=== PATIENT | male | born 2000 | race Caucasian/White ===

== ENCOUNTER 2020-06-10 15:59 | Outpatient (REF) | payer OTHER, SELFPAY | END 2020-06-10 16:00 | disposition home or self-care (01) | LOC: HO.LAB 15:59 | PROVIDERS: Visit Provider Internal Medicine | DX: Z20.828 Contact with and (suspected) exposure to other viral communicable diseases (principal) | CPT/HCPCS: C9803; U0003 ==

== ENCOUNTER 2020-06-16 09:17 | Outpatient (REF) | payer OTHER, SELFPAY | END 2020-06-16 09:18 | disposition home or self-care (01) | LOC: HO.LAB 09:17 | PROVIDERS: Visit Provider Internal Medicine | DX: Z20.828 Contact with and (suspected) exposure to other viral communicable diseases (principal) | CPT/HCPCS: C9803; U0003 ==

== ENCOUNTER 2020-07-16 11:22 | Outpatient (REF) | payer OTHER, SELFPAY | END 2020-07-16 11:23 | disposition home or self-care (01) | LOC: HO.LAB 11:22 | PROVIDERS: PCP Family Medicine; Visit Provider Internal Medicine | DX: Z20.828 Contact with and (suspected) exposure to other viral communicable diseases (principal) | CPT/HCPCS: C9803; U0003 ==

== ENCOUNTER 2021-03-31 10:02 | Outpatient (REF) | payer MEDICAID, SELFPAY ==
--- NOTE | ~2021-03-31 | XR_ITS ---
EXAMINATION: XR THORACIC SPINE XR LUMBAR SPINE CLINICAL INFORMATION: Back pain. COMPARISON: None TECHNIQUE: AP, lateral, and swimmer's views of the thoracic spine. AP, lateral, and coned-down views of the lumbar spine. FINDINGS: Thoracic spine: Normal vertebral body alignment. The thoracic kyphosis is maintained. No acute fracture or subluxation. No loss of vertebral body or intervertebral disc height. No lytic or blastic osseous lesion. The visualized lungs are clear. Lumbar spine: Normal vertebral body alignment. The lumbar lordosis is maintained. No acute fracture or subluxation. No loss of vertebral body or intervertebral disc height. No lytic or blastic osseous lesion. No abnormal soft tissue calcification. XR/XR thoracic spine 3V IMPRESSION: Unremarkable examination.
--- NOTE | ~2021-03-31 | XR_ITS ---
EXAMINATION: XR THORACIC SPINE XR LUMBAR SPINE CLINICAL INFORMATION: Back pain. COMPARISON: None TECHNIQUE: AP, lateral, and swimmer's views of the thoracic spine. AP, lateral, and coned-down views of the lumbar spine. FINDINGS: Thoracic spine: Normal vertebral body alignment. The thoracic kyphosis is maintained. No acute fracture or subluxation. No loss of vertebral body or intervertebral disc height. No lytic or blastic osseous lesion. The visualized lungs are clear. Lumbar spine: Normal vertebral body alignment. The lumbar lordosis is maintained. No acute fracture or subluxation. No loss of vertebral body or intervertebral disc height. No lytic or blastic osseous lesion. No abnormal soft tissue calcification. XR/XR lumbar spine 2-3V IMPRESSION: Unremarkable examination.
== END 2021-03-31 10:03 | disposition home or self-care (01) ==
LOC: HO.XRAY 10:02
PROVIDERS: PCP Family Medicine; Visit Provider Family Medicine
DX: M54.5 Low back pain (principal)
CPT/HCPCS: 72072; 72100

== ENCOUNTER 2024-09-02 14:05 | Outpatient (REF) | payer MEDICAID, SELFPAY ==
[2024-09-02 16:45] LABS: Estimated Average Glucose 94 mg/dL; Hemoglobin A1C 123.2729 umol/L; Hemoglobin A1c % 4.9 % (<6.0); Total Hemoglobin (HGBA1C) 4173.7902 umol/L
[2024-09-02 16:55] LABS: Alanine Aminotransferase 36 U/L (0-40); Albumin Level 4.5 g/dL (3.5-5.0); Alkaline Phosphatase 52 U/L (39-117); Anion Gap 11 (12-20); Aspartate Amino Transferase 24 U/L (5-37); Blood Urea Nitrogen 13 mg/dL (9-16); Calcium 9.5 mg/dL (8.4-10.2); Carbon Dioxide 25 mmol/L (22-29); Chloride 108 mmol/L (96-108); Estimated Glomerular Filt Rate > 60; Glucose Random 100 mg/dL (60-115); Sodium 140 mmol/L (135-145); Total Protein 7.5 g/dL (6.5-8.0)
[2024-09-02 17:05] LABS: TSH reflex Free T4 0.97 uIU/mL (0.32-4.0)
[2024-09-02 18:08] LABS: CT PCR NOT DETECTED (Not Detect.); NG PCR NOT DETECTED (Not Detect.)
--- OUTSIDE RECORDS SUMMARY | 2024-09-02 18:37 | XMS_ITS | Encounter Summary ---
Author Organization [employer] Address [address] 7[address] [place] [address] Care Team Providers Care Supervisor [employer] Name Role Phone Elaine Zavala MD Primary Care Provider [phone] Encounter Details Date Type Department Care Team (Latest Contact Info) Description 09/02/2024 Travel Social History Tobacco Use Types Packs/Day Years Used Date Smoking Tobacco: Never Smokeless Tobacco: Never Depression Answer Date Recorded Patient Health Questionnaire-9 Score 0 09/02/2024 Patient Health Questionnaire-9 Score 0 09/02/2024 Last PHQ-9: Questionnaire Data Not on file 0 09/02/2024 Housing Stability Answer Date Recorded What is your housing situation today? I have riccardovelma bobo 11/02/[address] you li ve. Do you have problems with any of the following? None of the above 11/02/2023 Food Insecurity Answer Date Recorded Within the past 12 months, y ou worried that your food would run out before you got money to buy more: Never True 11/02/2023 Within the past 12 months,th e food you bought just didn't last and you didn't have enough money to get more: Never True Transportation Answer Date Recorded In the past 12 months, has l ack of transportation kept you from medical appts, meetings, work or from getting things needed for daily living? No 11/02/2023 Utilities Answer Date Recorded In the past 12 months, has t he electric, gas, oil or water company threatened to shut off services in your home? Yes 09/02/2024 Depression Answer Date Recorded Patient Health Questionnaire-2 Score 0 09/02/2024 Internet Access Answer Date Recorded Internet Access Q1 Yes 08/22/2024 Internet Access Q2 Not on file 08/22/2024 Sex and Gender Information Value Date Recorded Sex Assigned at Male 06/06/2022 10:18 AM EDT Legal Sex Male 10:18 AM EDT Gender Identity Male 06/06/2022 10:18 AM EDT Sexual Orientation Straight 06/06/2022 10 :18 AM EDT documented as of this encounter Plan of Treatment Not on file documented as of this encounter Visit Diagnoses Not on filedocumented in this encounter Additional Health Concerns Assessment Noted Time PHQ-9 Depression Total Score: 0 09/02/19 25 1:54 PM EST documented as of this encounter Care Teams Supervisor [employer]ar [employer] Relationship Specialty Start Date End Date Elaine Zavala MD [address] [place] [address] PCP - General Family Medicine 08/07/18 documented as of this encounter
--- OUTSIDE RECORDS SUMMARY | 2024-09-02 18:37 | XMS_ITS | Clinical Summary ---
Author Organization [employer] Address [address] [facility] 7t [place] [address] Care Team Providers Care Felt Hat Mellowing Machine Operator Name Role Phone Elaine Zavala MD Primary Care Provider [phone] Allergies No known active allergies Medications cetirizine (ZyrTEC) 10 MG tablet Take 1 tablet (10 mg) by mouth in the morning. 90 tablet 3 3 Active mometasone (Elocon) 0.1 % ointment Apply topically to the affected area shortly after shower / bath. Dry well before applying. 45 g 2 3 Active hydrocortisone 2.5 % cream Apply topically once or twice daily. Shortly after shower / bath 453 g 1 5 Active triamcinolone (Kenalog) 0.1 % cream Apply to affected area once or twice daily. Apply shortly after shower. 80 g 1 5 Active Active Problems Problem Noted Date Diagnosed Date Marijuana use 11/20/2022 Assessment & Plan (09/02/2024 2:09 PM EST): - discussed about responsible, judicious, and safe use. - pt agreed to carry Narcan; will prescribe Assessment & Plan (11/20/2022 3:44 PM EDT): - discussed about responsible, judicious, and safe use. - discussed about increasing fentanyl overdose and Xylazine - pt agreed to carry Narcan; will prescribe Poor vision 11/20/2022 Allergic rhinitis 07/11/2013 Assessment & Plan (09/02/2024 2:08 PM EST): - restart cetirizine Assessment & Plan (11/20/2022 3:41 PM EDT): - restart cetirizine Atopic dermatitis 05/04/2012 Assessment & Plan (09/02/2024 2:08 PM EST): - avoid scratching - use hypoallergenic and unscented skin care / laundry / cleaning product - liberal moisturization with emollient (such as Vaseline) - judicious use of topical steroid Assessment & Plan (11/20/2022 3:49 PM EDT): - avoid scratching - use hypoallergenic and unscented skin care / laundry / cleaning product - liberal moisturization with emollient (such as Vaseline) - judicious use of topical steroid History of ADHD 05/04/2012 Assessment & Plan (09/02/2024 2:08 PM EST): - he did not need any medication - he was able to graduate [facility] Assessment & Plan (11/20/2022 3:40 PM EDT): - he did not need any medication - he was able to graduate [facility] Resolved Problems Problem Noted Date Diagnosed Date Resolved Date Childhood obesity 10/29/2015 11/12/2023 Encounters Date Type Department Care Team Description 09/02/2024 1:15 PM EST Office Visit [facility] [address] [place] [phone] Elaine Zavala MD Routine general medical examination at a health care facility (Primary Dx); Intrinsic atopic dermatitis; History of ADHD; Allergic rhinitis, unspecified seasonality, unspecified trigger; Routine screening for STI (sexually transmitted infection); Immunity status testing; Screening for lipid disorders; Encounter for screening for respiratory tuberculosis; Obesity (BMI 30.0-34.9); Skin lesion; Marijuana use; Poor vision 09/02/2024 Travel 08/22/2024 Patient Outreach [facility] [address] [place] [phone] Elaine Zavala MD Pre-visit Planning (SDOH Screening negative and Tobacco screening negative) from Last 3 Months Immunizations Name Administration Dates Next Due DTaP 01/28/2019, 5,05/15/2002,07/04,04/26/2001,02/14/2001 HPV 9-Valent 07/25/2016,07/14/2015 HPV, Quadrivalent 07/14/2014 Hep A, ped/adol, 2 dose 11/25/2010,11/16/2009 Hep B, Adolescent or Pediatric 07/04/2001,2000,2000 Hib (HbOC) 12/27/2002,05/04/2001,02/14/2001 IPV 02/09/2005, 2,03/03/2001,02/14 Influenza injectable quadriv alent IIV4 with preservative 07/25/2016,07/14/2015 Influenza injectable quadriv alent preservative free 08/19/2019,08/15/2018,07/26/2017 Influenza, IIV3, injectable 04/28/2011 Influenza, Split (incl. teagan fied surface antigen) 07/11/2013,05/04/2012 Influenza, injectable, quadr ivalent, preservative free, pediatric 07/14/2014 Influenza, live, intranasal 04/13/2010 MMR 02/09/2005,12/21/2001 Meningococcal MCV4P ACYW-135 07/26/2017,05/04/20 12 Pneumococcal Conjugate PCV 7 05/15/2002, 07/04/2001,04/29/2001,02/14 Tdap 05/04/2012 Varicella 08/03/2007,12/21/2001 Family History Medical History Relation Name Comments Diabetes type II Maternal Grandmother Relation Name Status Comments Maternal Grandmother Social History Tobacco Use Types Packs/Day Years Used Date Smoking Tobacco: Never Smokeless Tobacco: Never Tobacco Cessation:Counseling Given: Not Answered Depression Answer Date Recorded Patient Health Questionnaire-9 Score 0 09/02/2024 Patient Health Questionnaire-9 Score 0 09/02/2024 Last PHQ-9: Questionnaire Data Not on file 0 09/02/2024 Housing Stability Answer Date Recorded What is your housing situation today? I have riccardo bobo 11/02/[address] you [...] Orientation Straight 06/06/2022 10 :18 AM EDT Last Filed Vital Signs Vital Sign Reading Time Taken Comments Blood Pressure 124/80 09/02/2024 1:55 PM EST Pulse 60 09/02/2024 1:31 PM EST Temperature 36.7 ??C (98.1 ??F) 09/02/2024 1:31 PM ES T Respiratory Rate 16 09/02/2024 1:31 PM EST Oxygen Saturation 98% 11/08/2022 11:09 AM EDT Inhaled Oxygen Concentration - - Weight 103 kg (227 lb 3.2 oz) 09/02/2024 1:31 PM EST Height 175.9 cm (5' 9.24 ) 11/08/2022 11:09 AM E DT Body Mass Index 33.32 11/08/2022 11:09 AM EDT Plan of Treatment Health Maintenance Due Date Last Done Comments Chlamydia and Gonorrhea Screening 2000 09/02/2024 Family Planning (PISQ) 12/21/2015 COVID-19 Vaccine ( season) 2024 07/09/2021, 06/18/2021 Influenza Vaccine (#1) 2024 , 08/15/2018, 07/26/2017, Additional history exists SDOH Screening 08/22/2025 08/22/2024 Alcohol/Substance Use Screening 09/02/2025 09/02/2024 Depression Screening 09/02/2025 09/02/2024, 09/02/19 Tobacco Screening 09/02/2025 09/02/2024 DTaP/Tdap/Td Vaccines (8 - Td or Tdap) 01/28/2029 01/28/2019, 05/04/2012, 02/09/2005, Additional history exists Zoster Vaccines (1 of 2) 2050 RSV Patients and Patients Aged 60 years or older (1 - 1-dose 75+ series) 12/21/2075 Hepatitis B Vaccines Completed 07/04/2001, 02/14/2001, 2000 Pneumococcal Vaccine: Pediatrics (0 to 5 Years) and At-Risk Patients (6 to 64 Years) Aged Out 05/15/2002, 07/04/2001, 04/29/2001, Additional history exists No longer eligible based on patient's age to complete this topic HIB Vaccines Completed 12/27/2002, 04/08, 02/14/2001 IPV Vaccines Completed 02/09/2005, 04/2002, 03/03/2001, Additional history exists Hepatitis A Vaccines Completed 11/25/2010, 11/17/19 10 HPV Vaccines Completed 07/25/2016, 03/2015, 07/14/2014 Meningococcal Vaccine Completed 07/26/2017, 012 HIV Screening Completed 11/08/2022 Hepatitis C Screening Completed 11/08/2022 RSV under 20 months Aged Out No longe r eligible based on patient's age to complete this topic Rotavirus Vaccines Aged Out No longer eligible based on patient's age to complete this topic Procedures Procedure Name Priority Date/Time Associated Diagnosis Comments COMPREHENSIVE METABOLIC PANEL Routine 09/02/2024 2:20 PM EST Obesity (BMI 30.0-34.9) HEMOGLOBIN A1C Routine 09/02/2024 2:20 PM EST Obesity (BMI 30.0-34.9) TSH W/REFLEX TO FT4 Routine 09/02/2024 2 :20 PM EST Obesity (BMI 30.0-34.9) CHLAMYDIA/N. GONORRHOEAE RNA, TMA, UROGENITAL Routine 09/02/2024 2:20 PM EST Immunity status testing HEPATITIS C AB W/REFL TO HCV RNA, QN, PCR Routine 11/08/2022 11:38 AM EDT Routine screening for STI (sexually transmitted infection) HIV 1/2 ANTIGEN/ANTIBODY, FOURTH GENERATION W/RFL Routine 11/08/2022 11:38 AM EDT Routine screening for STI (sexually transmitted infection) from Last 3 Months or Most Recently Relevant to Health Maintenance Results * TSH with Reflex to Free T4 (09/02/2024 2:20 PM EST) TSH reflex Free T4 0.97 0.32 - 4.0 uIU/mL [facility] Blood 09/02/2024 2:20 PM EST 09/02/2024 4:23 PM EST us Elaine Zavala MD LAB BLOOD ORDERABLES Final Resul t [facility] [address] [place] [phone] * Chlamydia/N. Gonorrhoeae RNA, TMA, Urogenitial (09/02/2024 2:20 PM EST) CT PCR NOT DETECTED Not Detect. [facility] Comment:A not detected test result does not exclude the possibilityof infection because test results can be affected byimproper specimen collection, concurrent antibiotic therapy,or the number of organisms in the specimen which may bebelow the sensitivity of the test. As with many diagnostictests, results from the Xpert CT/NG assay should beinterpreted in conjunction with other laboratory andclinical data available to the clinician.Xpert CT/NG performance has not been evaluated in patientsless than 14 years of age. The assay should not be used forthe evaluationof suspected sexual abuse or for other medico-legalindications. Additional testing is recommended in anycircumstance when false positive or false negative resultscould lead to adverse medical, social or psychologicalconsequences. NG PCR NOT DETECTED Not Detect. [facility] Comment:A not detected test result does not exclude the possibilityof infection because test results can be affected byimproper specimen collection, concurrent antibiotic therapy,or the number of organisms in the specimen which may bebelow the sensitivity of the test. As with many diagnostictests, results from the Xpert CT/NG assay should beinterpreted in conjunction with other laboratory andclinical data available to the clinician.Xpert CT/NG performance has not been evaluated in patientsless than 14 years of age. The assay should not be used forthe evaluationof suspected sexual abuse or for other medico-legalindications. Additional testing is recommended in anycircumstance when false positive or false negative resultscould lead to adverse medical, social or psychologicalconsequences. Urine, Random 09/02/2024 2:2 0 PM EST 09/02/2024 4:21 PM EST Narrative [facility] - 09/02/2024 6:08 PM EST Urine us Elaine Zavala MD LAB MICROBIOLOGY - GENERAL ORDER NATALYA Final Result [facility] [address] [place] [phone] * Hemoglobin A1c (09/02/2024 2:20 PM EST) Hemoglobin A1c 4.9 <6.0 % [facility] Comment:Hemoglobin A1C Refer ence Range Adults: 4.8 - 6.0 % Non diabetic: < 6.0 % Goal: < 7.0 %Additional Action Suggested: > 8.0 %Note: Hemoglobin A1c results are invalid for patients with abnormal amounts of HbF. Blood transfusions may impact the HbA1c concentration in the patient sample. Estimated Average Glucose 94 mg/dL [facility] Comment:eAG = Estimated ave rage glucose which is %A1C expressed asaverage glucose, using the formula of the H9N-TuwsmajPqqnonl Glucose study (ADAG), Diabetes Care, Vol.31,#8,2007 Blood Venous blood specimen / Unknown 09/02/2024 2:20 PM EST 09/02/2024 4:23 PM EST us Elaine Zavala MD LAB BLOOD ORDERABLES Final Resul t [facility] [address] [place] [phone] * (ABNORMAL) Comprehensive Metabolic Panel (09/02/2024 2:20 PM EST) Sodium 140 135 - 145 mmol/L [facility] Potassium 4.0 3.3 - 5.1 mmol/L [facility] Chloride 108 96 - 108 mmol/L [facility] Carbon Dioxide 25 22 - 29 mmol/L [facility] Anion Gap 11(L) 12 - 20 [facility] Urea Nitrogen (BUN) 13 9 - 16 mg/dL [facility] Creatinine, Serum 0.96 0.5 - 1.4 mg/dL [facility] Estimated Glomerular Filt Rate >60 [facility] Comment:Chronic Kidney Disea se: Estimated GFR < 60 mL/min/1.84h0Cvndsf Kidney Disease: Estimated GFR < 15 mL/min/1.73m2 Glucose 100 60 - 115 mg/dL [facility] Calcium 9.5 8.4 - 10.2 mg/dL [facility] Bilirubin, Total 1.0 0.0 - 1.0 mg/dL [facility] Aspartate Amino Transferase 24 5 - 37 U/L [facility] Alanine Aminotransferase 36 0 - 40 U/L [facility] Total Protein 7.5 6.5 - 8.0 g/dL [facility] Albumin Level 4.5 3.5 - 5.0 g/dL [facility] Alkaline Phosphatase 52 39 - 117 U/L [facility] Blood Venous blood specimen / Unknown 09/02/2024 2:20 PM EST 09/02/2024 4:23 PM EST Elaine Zavala MD LAB BLOOD ORDERABLES Final Resul t [facility] [address] [place] [phone] [phone] * Hepatitis C Antibody with Reflex to HCV, RNA, Quantitative, Real-Time PCR (11/08/2022 11:38 AM EDT) Hepatitis C Antibody NON-REACT JOI NON-REACT JOI [facility] [place] [employer] Index 0.06 <1.00 [facility] [place] [facility] Comment: HCV antibody was non-reactive. There is no laboratory evidence of HCV infection. In most cases, no further action is required. However, if recent HCV exposure is suspected, a test for HCV RNA (test code 43040) is suggested. For additional information please refer to http://education.[employer]/faq/NBF72q6 (This link is being provided for informational/ educational purposes only.) Blood Venous blood specimen / Unknown 11/08/2022 11:38 AM EDT 11/08/2022 11:39 AM EDT Narrative [facility] - 11/09/2022 6:30 PM EDT FASTING:NO FASTING: NO Elaine Zavala MD LAB BLOOD ORDERABLES Final Resul t Performing Organization Address City/[facility]/ZIP Co de Phone Number [facility] [address] [facility], [place] [address] [facility] [place] [facility] [address] [place] [address] * HIV-1/2 Antigen and Antibodies, Fourth Generation, with Reflexes (11/08/2022 11:38 AM EDT) HIV Antigen/Antibody, 4th Generation NON-REAC TIVE NON-REAC TIVE [facility] [place] [employer] Comment: HIV-1 antigen and HIV-1/HIV-2 antibodies were not detected. There is no laboratory evidence of HIV infection. PLEASE NOTE: This information has been disclosed to you from records whose confidentiality may be protected by state law. ??If your state requires such protection, then the state law prohibits you from making any further disclosure of the information without the specific written consent of the person to whom it pertains, or as otherwise permitted by law. A general authorization for the release of medical or other information is NOT sufficient for this purpose. ?? For additional information please refer to http://education.[employer]/faq/VKZ156 (This link is being provided for informational/ educational purposes only.) The performance of this assay has not been clinically validated in patients less than 2 years old. Blood Venous blood specimen / Unknown 11/08/2022 11:38 AM EDT 11/08/2022 11:39 AM EDT Narrative [facility] - 11/09/2022 6:30 PM EDT FASTING:NO FASTING: NO Elaine Zavala MD LAB BLOOD ORDERABLES Final Resul t [facility] [address], [place] [address] [facility] [address] [place] [phone] from Last 3 Months or Most Recently Relevant to Health Maintenance Insurance [facility] * Guarantor: Reji Marshall Account Type Relation to Patient Date of Phone Billing Address Personal/Family Self [address] [place] Care Teams Felt Hat Mellowing Machine Operator Relationship Specialty Start Date End Date Elaine Zavala MD [address] [place] [phone] PCP - General Family Medicine 08/07/18
--- OUTSIDE RECORDS SUMMARY | 2024-09-02 18:37 | XMS_ITS | Encounter Summary ---
Author Organization [employer] Address [address] [facility] [facility] [place] [address] Care Team Providers Care Head Chef Name Role Phone Elaine Zavala MD Primary Care Provider [phone] Reason for Visit * Reason Comments Pre-visit Planning SDOH Screening negat jakub and Tobacco screening negative Encounter Details Date Type Department Care Team ([facility] st Contact Info) Description 08/22/2024 Patient Outreach [facility] [address] [place], [place] [phone] Elaine Zavala MD [address] [place], [place] [phone] Pre-visit Planning (SDOH Screening negative and Tobacco screening negative) Social History Tobacco Use Types Packs/Day Years Used Date Smoking Tobacco: Never Assessed Housing Stability Answer Date Recorded What is [...] to shut off services in your home? No 11/02/2023 Internet Access Answer Date Recorded Internet Access Q1 Yes 08/22/2024 Internet Access Q2 Not on file 08/22/2024 Sex and Gender Information Value Date Recorded Sex Assigned at Male 06/06/2022 10:18 AM EDT Legal Sex Male 10:18 AM EDT Gender Identity Male 06/06/2022 10:18 AM EDT Sexual Orientation Straight 06/06/2022 10 :18 AM EDT documented as of this encounter Progress Notes * Jemima Wilson - 08/22/2024 10:11 AM EST CC Jemima Velásquez placed successful outbound call to patient for pre-visit planning. Patient name and confirmed. Patient confirms appt date and time, and has transportation arrangements. Biggest concern for appointment at this time is no concerns. Patient advised to bring to appointment a photo id and insurance card. Appropriate screenings completed in anticipation of appointment. documented in this encounter Plan of Treatment Not on file documented as of this encounter Visit Diagnoses Not on filedocumented in this encounter Care Teams Head Chef Relationship Specialty Start Date End Date Elaine Zavala MD [address] [place] [phone] PCP - General Family Medicine 08/07/18 documented as of this encounter
--- OUTSIDE RECORDS SUMMARY | 2024-09-02 18:37 | XMS_ITS | Encounter Summary ---
Author Organization [employer] Address [address] [place] [address] Care Team Providers Care Crimper Assembler Name Role Phone Elaine Zavala MD Primary Care Provider [phone] Encounter Details Date Type Department Care Team (Late st Contact Info) Description 09/02/2024 1:15 PM EST Office Visit [facility] [address] [place], [place] [phone] Elaine Zavala MD [address] [place] [address] Routine general medical examination at a health care facility (Primary Dx); Intrinsic atopic dermatitis; History of ADHD; Allergic rhinitis, unspecified seasonality, unspecified trigger; Routine screening for STI (sexually transmitted infection); Immunity status testing; Screening for lipid disorders; Encounter for screening for respiratory tuberculosis; Obesity (BMI 30.0-34.9); Skin lesion; Marijuana use; Poor vision Social History Tobacco Use Types Packs/Day Years [...] AM EDT documented as of this encounter Last Filed Vital Signs Vital Sign Reading Time Taken Comments Blood Pressure 124/80 09/02/2024 1:55 PM EST Pulse 60 09/02/2024 1:31 PM EST Temperature 36.7 ??C (98.1 ??F) 09/02/2024 1:31 PM ES T Respiratory Rate 16 09/02/2024 1:31 PM EST Oxygen Saturation - - Inhaled Oxygen Concentration - - Weight 103 kg (227 lb 3.2 oz) 09/02/2024 1:31 PM EST Height - - Body Mass Index 33.32 11/08/2022 11:09 AM EDT documented in this encounter Miscellaneous Notes * Assessment & Plan Note - Alvin Roa - 09/02/2024 2:09 PM ESTAssociated Problem(s): Marijuana use - discussed about responsible, judicious, and safe use. - pt agreed to carry Narcan; will prescribe * Assessment & Plan Note - Alvin Roa - 09/02/2024 2:08 PM ESTAssociated Problem(s): History of ADHD - he did not need any medication - he was able to graduate [facility] * Assessment & Plan Note - Alvin Roa - 09/02/2024 2:08 PM ESTAssociated Problem(s): Allergic rhinitis - restart cetirizine * Assessment & Plan Note - Alvin Roa - 09/02/2024 2:08 PM ESTAssociated Problem(s): Atopic dermatitis - avoid scratching - use hypoallergenic and unscented skin care / laundry / cleaning product - liberal moisturization with emollient (such as Vaseline) - judicious use of topical steroid documented in this encounter Plan of Treatment Scheduled Orders Name Type Priority Associated Diagnoses Orde r Schedule Lipid Panel with Reflex to Direct LDL Lab Routine Obesity (BMI 30.0-34.9) Expected: 09/02/2024 (Approximate), Expires: 09/02/2025 Syphilis Screen Lab Routine Immunity status testing Expected: 09/02/2024 (Approximate), Expires: 09/02/2025 Hepatitis C Antibody with Reflex to HCV, RNA, Quantitative, Real-Time PCR Lab Routine Immunity status testing Expected: 09/02/2024 (Approximate), Expires: 09/02/2025 Hepatitis B Surface Antibody, Qualitative Lab Routine Immunity status testing Expected: 09/02/2024 (Approximate), Expires: 09/02/2025 Hepatitis B Core Antibody, Total Lab Routine Immunity status testing Expected: 09/02/2024 (Approximate), Expires: 09/02/2025 HIV-1/2 Antigen and Antibodies, Fourth Generation, with Reflexes Lab Routine Immunity status testing Expected: 09/02/2024 (Approximate), Expires: 09/02/2025 Hepatitis B surface antigen, EIA Lab Routine Immunity status testing Expected: 09/02/2024 (Approximate), Expires: 09/02/2025 Hepatitis A Antibody, Total Lab Routine Immunity status testing Expected: 09/02/2024 (Approximate), Expires: 09/02/2025 Herpes Simplex Virus 1/2 Antibody (IgM), IFA with Reflex to Titer, Serum Lab Routine Skin lesion Expected: 09/02/2024, Expires: 09/02/2025 documented as of this encounter Procedures Procedure Name Priority Date/Time Associated Diagnosis Comments TSH W/REFLEX TO FT4 Routine 09/02/2024 2 :20 PM EST Obesity (BMI 30.0-34.9) CHLAMYDIA/N. GONORRHOEAE RNA, TMA, UROGENITAL Routine 09/02/2024 2:20 PM EST Immunity status testing HEMOGLOBIN A1C Routine 09/02/2024 2:20 PM EST Obesity (BMI 30.0-34.9) COMPREHENSIVE METABOLIC PANEL Routine 09/02/2024 2:20 PM EST Obesity (BMI 30.0-34.9) documented in this encounter Results * Chlamydia/N. Gonorrhoeae RNA, TMA, Urogenitial (09/02/2024 2:20 PM EST) CT PCR NOT DETECTED Not Detect. [facility] Comment:A not detected test result [...] psychologicalconsequences. NG PCR NOT DETECTED Not Detect. [facility] Comment:A not detected test result [...] PM EST 09/02/2024 4:21 PM EST Narrative [facility] - 09/02/2024 6:08 PM EST Urine us Elaine Zavala MD LAB MICROBIOLOGY - GENERAL ORDER NATALYA Final Result [facility] [address] [place] [phone] * (ABNORMAL) Comprehensive Metabolic Panel (09/02/2024 2:20 PM EST) Sodium 140 135 - 145 mmol/L [facility] Potassium 4.0 3.3 - 5.1 mmol/L [facility] Chloride 108 96 - 108 mmol/L [facility] Carbon Dioxide 25 22 - 29 mmol/L [facility] Anion Gap 11(L) 12 - 20 [facility] Urea Nitrogen (BUN) 13 9 - 16 mg/dL [facility] Creatinine, Serum 0.96 0.5 - 1.4 mg/dL [facility] Estimated Glomerular Filt Rate >60 [facility] Comment:Chronic Kidney Disea se: Estimated GFR < 60 mL/min/[id number] Kidney Disease: Estimated GFR < 15 mL/min/1.73m2 Glucose 100 60 - 115 mg/dL [facility] Calcium 9.5 8.4 - 10.2 mg/dL [facility] Bilirubin, Total 1.0 0.0 - 1.0 mg/dL [facility] Aspartate Amino Transferase 24 5 - 37 U/L [facility] Alanine Aminotransferase 36 0 - 40 U/L [facility] Total Protein 7.5 6.5 - 8.0 g/dL [facility] Albumin Level 4.5 3.5 - 5.0 g/dL [facility] Alkaline Phosphatase 52 39 - 117 U/L [facility] Blood Venous blood specimen / Unknown 09/02/2024 2:20 PM EST 09/02/2024 4:23 PM EST Elaine Zavala MD LAB BLOOD ORDERABLES Final Resul t Performing Organization Address [facility] de Phone Number [facility] [address] [place] [phone] * Hemoglobin A1c (09/02/2024 2:20 PM EST) Hemoglobin A1c 4.9 <6.0 % [facility] Comment:Hemoglobin A1C Refer ence Range Adults: 4.8 - 6.0 % Non diabetic: < 6.0 % Goal: < 7.0 %Additional Action Suggested: > 8.0 %Note: Hemoglobin A1c results are invalid for patients with abnormal amounts of HbF. Blood transfusions may impact the HbA1c concentration in the patient sample. Estimated Average Glucose 94 mg/dL [facility] Comment:eAG = Estimated ave rage glucose which is %A1C expressed asaverage glucose, using the formula of the U3M-YbfdiwyVnpuntn Glucose study (ADAG), Diabetes Care, Vol.31,#8,Mar. 2007 Blood Venous blood specimen / Unknown 09/02/2024 2:20 PM EST 09/02/2024 4:23 PM EST Elaine Zavala MD LAB BLOOD ORDERABLES Final Resul t Performing Organization Address [facility] Co de Phone Number [facility] [address] [place] [phone] * TSH with Reflex to Free T4 (09/02/2024 2:20 PM EST) TSH reflex Free T4 0.97 0.32 - 4.0 uIU/mL [facility] Blood 09/02/2024 2:20 PM EST 09/02/2024 4:23 PM EST Elaine Zavala MD LAB BLOOD ORDERABLES Final Resul t [facility] [address] [place] [phone] [phone] documented in this encounter Visit Diagnoses Diagnosis Routine general medical examination at a health care facility- Primary Intrinsic atopic dermatitis History of ADHD Allergic rhinitis, unspecified seasonality, unspecified trigger Routine screening for STI (sexually transmitted infection) Screening examination for venereal disease Immunity status testing Antibody response examination Screening for lipid disorders Encounter for screening for respiratory tuberculosis Obesity (BMI 30.0-34.9) Skin lesion Unspecified disorder of skin and subcutaneous tissue Marijuana use Poor vision Unspecified visual loss documented in this encounter Additional Health Concerns Assessment Noted Time PHQ-9 Depression Total Score: 0 09/02/19 25 1:54 PM EST documented as of this encounter Care Teams Crimper Assembler Relationship Specialty Start Date End Date Elaine Zavala MD [address] [place] [phone] PCP - General Family Medicine 08/07/18 documented as of this encounter
[2024-09-03 08:13] LABS: Syphilis Screen Nonreactive (Nonreactive)
[2024-09-03 08:17] LABS: Hepatitis A Antibody IgM 0.14 Index (0-0.79); ~Hepatitis A Antibody IgM Nonreactive (Nonreactive)
[2024-09-03 08:34] LABS: HBS Num1 0.64 mIU/mL (0-7.99); HBc Num1 0.07 S/CO (0.00-0.79); HBsAGNum1 0.41 S/CO (0.00-0.99); HIV AB/AG Nonreactive (Nonreactive); HIV Num 1 0.06 S/CO (0.00-0.99); Hepatitis B Core Antibody Nonreactive (Nonreactive); Hepatitis B Surface Antigen Negative (Negative); ~HepC Num1 0.08 S/CO (0.00-0.79); ~Hepatitis B Surface Antibody NONREACTIVE (Nonreactive); ~Hepatitis C Antibody Nonreactive (Nonreactive)
[2024-09-04 12:04] LABS: Herpes Simplex Type 1 IgG <0.90 index; Herpes Simplex Type 2 IgG <0.90 index
== END 2024-09-02 14:06 | disposition home or self-care (01) ==
LOC: HO.HHCL 14:05
PROVIDERS: Visit Provider Family Medicine
DX: E66.811 Obesity, class 1 (principal); Z01.84 Encounter for antibody response examination; L98.9 Disorder of the skin and subcutaneous tissue, unspecified
CPT/HCPCS: 80053; 83036; 84443; 86695; 86696; 86704; 86706; 86709; 86780; 86803; 87340; 87389; 87491; 87591